=== PATIENT | male | born 1995 | race Two or more races ===

== ENCOUNTER 2018-07-24 00:47 | Emergency (ER) | payer OTHER ==
[~2018-07-24] VITALS: Ht 175.3 cm; Wt 128.8 kg
--- NOTE | 2018-07-24 01:13 | Emergency Room Report ---
History of Present Illness General Chief Complaint: Laceration Source: Patient Present Illness HPI Patient is a 22-year-old male who presented to the right thumb injury. Patient is right-hand dominant. He works at a caf. He reports having the cut his hand on a glass. The patient states he had been able to use and normally. He denies any recent tetanus vaccine. He denies any numbness or weakness. Allergies: Coded Allergies: No Known Allergies (Unverified , 07/24/18) Patient History Past Medical History: see triage record Reviewed Nursing Documentation: PMH: Agreed; PSxH: Agreed Nursing Documentation-PMH Past Medical History: No History, Except For Hx Hypertension: Yes Hx Asthma: Yes Review of Systems All Other Systems: negative except mentioned in HPI Physical Exam Vital Signs Date Time Temp Pulse Resp B/P (MAP) Pulse Ox O2 Delivery O2 Flow Rate FiO2 07/24/18 00:49 98.3 85 16 145/95 98 Room Air 98.2 General Appearance: well appearing, no apparent distress, alert, GCS 15, obese Head: normocephalic, atraumatic ENT: hearing grossly normal, normal voice Neck: full range of motion, supple Respiratory: no respiratory distress, speaking full sentences Neurologic: normal inspection, alert, oriented x3, normal gait Psychiatric: mood/affect normal Skin: laceration - 1 cm linear Procedures Laceration/Wound Repair Laceration/Wound Repair : Consent: Verbal Wound's Depth, Shape: superficial Wound Length (cm): 1 Wound Explored: clean Betadine Prep?: Yes Anesthesia: 1% Lidocaine Volume Anesthetic (ccs): 2 Wound Debrided: minimal Wound Repaired With: sutures Suture Size/Type: 4:0 Number of Sutures: 2 Layer Closure?: No Sterile Dressing Applied?: Yes Patient Tolerated: Well Complications: None Medical Decision Making Diagnostic Impression: Primary Impression: Laceration ER Course Patient presented for laceration. Differential diagnoses included foreign body , nerve injury, arterial injury among others. Wound was irrigated and closed with 4-0 Prolene stitches. The patient is advised wound recheck. The patient follow-up with workers comp clinic. He was given prescription for topical antibiotics antibiotics Last Vital Signs Date Time Temp Pulse Resp B/P (MAP) Pulse Ox O2 Delivery O2 Flow Rate FiO2 07/24/18 00:49 98.3 85 16 145/95 98 Room Air 98.2 Status: improved Disposition: HOME, SELF-CARE Condition: Stable Scripts Bacitracin Zinc* (BACITRACIN ZINC*) 1 Each Packet 1 APPLIC TOPIC THREE TIMES A DAY, #20 PACKET Prov: Anil Hernandez MD 07/24/18 Ibuprofen* (MOTRIN*) 600 Mg Tablet 600 MG ORAL Q8H PRN for For Pain, #30 TAB 0 Refills Prov: Anil Hernandez MD 07/24/18 Anil Hernandez MD Jul 24, 2018 01:13
[2018-07-24] MEDS ORDERED: Tetanus/Diptheria/Pertussis Vaccine 0.5ml Syr IM ONE (01:15)
[2018-07-24] MEDS ORDERED: Lidocaine 1% MPF 10mg/ml 5ml INJ ONE (01:15)
[2018-07-24 01:21] VITALS: BP 145/95
[2018-07-24] MEDS ORDERED: BACITRACIN ZIN1 EACH TOPIC (01:33)
[2018-07-24] MEDS ORDERED: IBUPROFEN600 MG ORAL (01:33)
[2018-07-24] MEDS ORDERED: Bacitracin Oint UD TOPIC ONE (01:35)
[2018-07-24 01:43] VITALS: BP 130/90
== END 2018-07-24 01:45 | disposition home or self-care (01) ==
LOC: EMR 01:13
DX: S61.011A Laceration without foreign body of right thumb without damage to nail, initial encounter (principal); I10 Essential (primary) hypertension; W25.XXXA Contact with sharp glass, initial encounter; Z23 Encounter for immunization; Y93.89 Activity, other specified; Y92.89 Other specified places as the place of occurrence of the external cause; Y99.0 Civilian activity done for income or pay
CPT/HCPCS: 90471; 90715; 99283